=== PATIENT | female | born 1970 | race American Indian/Alaskan Native ===

== ENCOUNTER 2016-09-19 06:44 | Day surgery (SDC) | payer OTHER ==
[2016-09-19] MEDS ORDERED: DIPRIVAN 10 MG/ML IV ONE (07:24)
[2016-09-19] MEDS ORDERED: XYLOCAINE MPF 2% ONE (07:25)
[2016-09-19] MEDS ORDERED: DILAUDID ONE (07:25)
[2016-09-19] MEDS ORDERED: NACL BACTERIOSTATIC INFILTRATI ONE (08:06)
--- NOTE | 2016-09-19 08:06 | Anesthesia Consultation ---
Anesthesia Consult and Med Hx Date of service: 09/19/16 - Airway Anesthetic Teeth Evaluation: Good ROM Head & Neck: Adequate Mental/Hyoid Distance: Adequate Mallampati Class: Class II Intubation Access Assessment: Probably Good - Pulmonary Exam CTA: Yes - Cardiac Exam Cardiac Exam: RRR - Pre-Operative Health Status ASA Pre-Surgery Classification: ASA2 Proposed Anesthetic Plan: General (no preevious anesthesia problems) - Pulmonary Hx Smoking: No Hx Asthma: No SOB: No COPD: No Hx Pneumonia: No Hx Sleep Apnea: No (MARILEE PRE SCREEN LOW RISK) - Cardiovascular System Hx Hypertension: Yes (X 3 MONTHS) Hx Coronary Artery Disease: No Hx Heart Attack/AMI: No Hx Angina: No Hx Cardia Arrhythmia: No Hx Heart Murmur: No - Central Nervous System Hx Seizures: No CVA: No Hx Psychiatric Problems: No - Gastrointestinal Hx Gastroesophageal Reflux Disease: No - Endocrine Hx Renal Disease: No Hx End Stage Renal Disease: No Hx Liver Disease: No Hx Non-Insulin Dependent Diabetes: No Hx Thyroid Disease: No - Other Systems Hx Alcohol Use: Yes (OCCASIONAL) Hx Substance Use: No Hx Cancer: No
--- NOTE | 2016-09-19 08:15 | Anesthesia Day of Surgery ---
Anesthesia Day of Surgery - Day of Surgery Patient Examined: Yes Patient H&P Reviewed: Yes Patient is NPO: Yes
[2016-09-19] MEDS ORDERED: ANCEF/STERILE WATER 2 GM/20 ML IV NR (08:30)
[2016-09-19] MEDS ORDERED: PEPCID IV NR (08:30)
[2016-09-19] MEDS ORDERED: NACL 0.9% 1000 ML 1,000 ML IV SCH (08:30)
[2016-09-19] MEDS ORDERED: VERSED IV NR (08:30)
[2016-09-19] MEDS ORDERED: ANCEF/STERILE WATER 2 GM/20 ML 2 GM/20 ML SYRINGE IV ONE (08:32)
[2016-09-19] MEDS ORDERED: ZOFRAN ONE (09:08)
--- NOTE | 2016-09-19 09:28 | XRay Report ---
KUB: Renal calculi. A KUB is compared to a comparable exam in October 2015. There is a 6.3 mm calculus overlying the right kidney which appears relatively unchanged from prior study. There is a 9.5 mm calculus overlying the left kidney which was not previously present. No other suggestion of renal calculus identified. There has been interval placement of an abdominal mesh. Impressions: Bilateral renal calculi.
--- NOTE | 2016-09-19 11:58 | Short Stay Summary ---
Short Stay Documentation Date of service: 09/19/16 - History H&P: obtained from office - Allergies and Medications Current Medications: Allergies apple Allergy (Verified 05/17/15 12:44) Hives peanut Allergy (Verified 05/17/15 12:44) Hives Sulfa (Sulfonamide Antibiotics) Allergy (Verified 05/22/15 06:51) Itching PT STATES SHE STARTED RUNNING LOW GRADE FEVER, HAD ABD. PAIN AND ITCHING Home Medications Medication Instructions Recorded Confirmed Last Taken Type amLODIPine [Norvasc] 5 mg PO DAILY 09/13/16 09/19/16 09/19/16 05:30 History Active Medications Cefazolin Sodium (Ancef/Sterile Water 2 Gm/20 Ml) 2 gm IV PREOP NR Stop: 09/19/16 12:00 Famotidine (Pepcid) 20 mg IV PREOP NR Stop: 09/19/16 21:00 Last Admin: 09/19/16 08:34 Dose: 20 mg Sodium Chloride (Nacl 0.9% 1000 Ml) 1,000 mls @ 125 mls/hr IV DIRECT SWATHI Stop: 09/19/16 21:00 Last Admin: 09/19/16 08:33 Dose: 125 mls/hr Midazolam HCl (Versed) 2 mg IV PREOP NR Stop: 09/19/16 21:00 Last Admin: 09/19/16 08:37 Dose: 2 mg - Brief post op/procedure progress note Date of procedure: 09/19/16 Pre-op diagnosis: kel rensl stones Post-op diagnosis: same Procedure: right eswl Anesthesia: GETA Findings: good vis Surgeon: ERWIN SARAVIA Estimated blood loss: minimal Pathology: none Specimen disposition: to lab Condition: stable - Hospital course Hospital course: orpac[facility]ome - Disposition Condition at discharge: Good Disposition: DC-01 TO HOME OR SELFCARE Short Stay Discharge Plan Activity: advance as tolerated Diet: advance as tolerated Follow up with: ERWIN SARAVIA MD [Staff Physician] - 7 Days
[2016-09-19 13:02] VITALS: BP 139/95
--- NOTE | 2016-09-22 17:35 | Operative Report ---
PREOPERATIVE DIAGNOSES: 1. Right renal 8 mm stone x 2. 2. Left renal stones. PROCEDURE: Right renal ESWL. SURGEON: Ag Rosenbaum MD ANESTHESIA: General. SPECIMENS: None. ESTIMATED BLOOD LOSS: Minimal. COMPLICATIONS: None. FINDINGS: Good visualization. Mild decrease in density. IMPLANTS: None. CLINICAL INDICATIONS: The patient counseled RCBA, antibiotics, SCDs. The patient has a history of left open ureteral lithotomy, has a likely left upper pole of her kidney not functioning very well with hydronephrosis, even though the nuclear renal scan shows no ____ but some hydronephrosis with past nuclear renal scan showing no obstruction, but due to the previous surgeries, the left kidney may be the one that is at risk for having multiple procedures. She wanted to discuss, she wanted to get the right side cleared to have the smaller stones with two stones in that kidney. Had antibiotics, SCDs. DESCRIPTION OF PROCEDURE: The patient transferred to OR suite in supine position, anesthesia, prepped and draped in standard fashion. Biplanar fluoroscopy was used to target the right stone within the F2. Stone was visualized. A total of 2700 shocks were delivered. Intermittent repositioning was done as necessary. At the end of the procedure, there was decreased density of the stone. The patient was awakened and transferred to PACU in good and stable condition. JOB# [id number] ATS/NTS BREEZY
== END 2016-09-19 12:34 | disposition home or self-care (01) ==
LOC: OR 06:44
PROVIDERS: ATTEND Urology
DX: N13.2 Hydronephrosis with renal and ureteral calculous obstruction (principal); I10 Essential (primary) hypertension; Z72.89 Other problems related to lifestyle; Z91.010 Allergy to peanuts; Z88.2 Allergy status to sulfonamides; Z91.018 Allergy to other foods; Z98.51 Tubal ligation status; Z98.890 Other specified postprocedural states; Z79.899 Other long term (current) drug therapy; Z82.49 Family history of ischemic heart disease and other diseases of the circulatory system; Z83.3 Family history of diabetes mellitus
CPT/HCPCS: 50590; 74000; J0690; J1170; J2250; J2405; J2704; J7030

== ENCOUNTER 2019-03-03 07:13 | Day surgery (SDC) | payer OTHER ==
[~2019-03-03 07:13] MED LIST: IOHEXOL 300 MG/ML 50ML IV ONE; WATER FOR IRRIG STERILE 2000 ML IR ONE
--- NOTE | 2019-03-03 08:47 | Anesthesia Consultation ---
Anesthesia Consult and Med Hx Date of service: 03/03/19 - Airway Anesthetic Teeth Evaluation: Partials ROM Head & Neck: Adequate Mental/Hyoid Distance: Adequate Mallampati Class: Class III Intubation Access Assessment: Possibly Difficult - Pulmonary Exam CTA: Yes (good air movement, no wheezing ) - Cardiac Exam Cardiac Exam: RRR - Pre-Operative Health Status ASA Pre-Surgery Classification: ASA3 Proposed Anesthetic Plan: General - Pulmonary Hx Smoking: No Hx Respiratory Symptoms: Yes (recent flu; completed course of Tamiflu. no residual respiratory symptoms) SOB: No Hx Sleep Apnea: No (MARILEE PRE SCREEN LOW RISK) - Cardiovascular System Hx Hypertension: Yes (taken of meds per PCP several months ago) Hx Heart Attack/AMI: No Hx Percutaneous Transluminal Coronary Angioplasty (PTCA): No - Central Nervous System CVA: No Hx Psychiatric Problems: No - Gastrointestinal Hx Gastroesophageal Reflux Disease: No - Endocrine Hx Renal Disease: No (hydronephrosis; denies hx renal dysfunction) Hx Liver Disease: No Hx Insulin Dependent Diabetes: No Hx Non-Insulin Dependent Diabetes: No Hx Thyroid Disease: No - Other Systems Hx Alcohol Use: Yes (OCCASIONAL) Hx Obesity: No - Additional Comments Anesthesia Medical History Comments: No hx anesthetic complications.
[2019-03-03] MEDS ORDERED: fentaNYL 100 MCG/2 ML INJ IV PRN (08:48)
--- NOTE | 2019-03-03 08:48 | Anesthesia Day of Surgery ---
Anesthesia Day of Surgery - Day of Surgery Patient Examined: Yes Patient H&P Reviewed: Yes Patient is NPO: Yes
[2019-03-03] MEDS ORDERED: MIDAZOLAM 2 MG/2 ML INJ ONE (08:53)
[2019-03-03] MEDS ORDERED: LACTATED RINGERS 1,000 ML IV SCH (09:00)
[2019-03-03] MEDS ORDERED: MIDAZOLAM 2 MG/2 ML INJ IV NR (09:00)
[2019-03-03] MEDS ORDERED: ceFAZolin/Water 2 GM/20 ML 2 GM/20 ML SYRINGE IV ONE (10:06)
[2019-03-03] MEDS ORDERED: SUCCINYLCHOLINE CHLORIDE 200 MG/10 ML INJ MDV ONE (10:22)
[2019-03-03] MEDS ORDERED: dexAMETHasone 20 MG/5 ML VIAL ONE (10:22)
[2019-03-03] MEDS ORDERED: LIDOCAINE MPF (2%) 20 MG/1 ML VIAL 5 ML ONE (10:22)
[2019-03-03] MEDS ORDERED: ONDANSETRON 4 MG/2 ML INJ ONE (10:22)
[2019-03-03] MEDS ORDERED: PHENYLEPHRINE/NS 1,000 MCG/10 ML SYRINGE (OR USE) IV ONE (10:22)
[2019-03-03] MEDS ORDERED: propofoL 200 MG/20 ML VIAL IV ONE (10:23)
[2019-03-03] MEDS ORDERED: fentaNYL 100 MCG/2 ML INJ ONE (10:23)
[2019-03-03] MEDS ORDERED: WATER FOR IRRIG STERILE 2000 ML IR ONE (10:41)
[2019-03-03] MEDS ORDERED: ceFAZolin/STERILE WATER 2 GM/20 ML SYRINGE IV NR (11:00)
--- NOTE | 2019-03-03 11:45 | Short Stay Summary ---
Short Stay Documentation Date of service: 03/03/19 - History H&P: obtained from office - Allergies and Medications Current Medications: Allergies apple Allergy (Verified 05/17/15 12:44) Hives peanut Allergy (Verified 05/17/15 12:44) Hives Sulfa (Sulfonamide Antibiotics) Allergy (Verified 05/22/15 06:51) Itching PT STATES SHE STARTED RUNNING LOW GRADE FEVER, HAD ABD. PAIN AND ITCHING Home Medications Medication Instructions Recorded Confirmed Last Taken Type Ascorbic Acid [Vitamin C] 500 mg PO QDAY 02/25/19 03/03/19 02/28/19 History AtorvaSTATin [Lipitor] 20 mg PO QHS 02/25/19 03/03/19 03/02/19 History HYDROcodone/APAP 10-325 [[place] 1 each PO Q6HR PRN 02/25/19 03/03/19 03/02/19 23:00 History 10/325] Active Medications Cefazolin Sodium (Ancef/Sterile Water 2 Gm/20 Ml) 2 gm IV PREOP NR Stop: 03/03/19 12:00 Fentanyl (Sublimaze) 50 mcg IV Q5MIN PRN PRN Reason: Pain , Severe (7-10) Stop: 03/03/19 23:00 Lactated Ringer's (Lactated Ringers) 1,000 mls @ 100 mls/hr IV DIRECT SWATHI Last Admin: 03/03/19 08:45 Dose: 100 mls/hr Documented by: Midazolam HCl (Versed) 2 mg IV PREOP NR Stop: 03/03/19 23:59 Last Admin: 03/03/19 08:53 Dose: 2 mg Documented by: - Brief post op/procedure progress note Date of procedure: 03/03/19 Pre-op diagnosis: L Renal stone 16mm, Lt uret stone; Rt renal stone Post-op diagnosis: same Procedure: cysto rpg left 7x26 stent, left urs Anesthesia: GETA Findings: no uret stone, good caliber ureter Surgeon: ERWIN SARAVIA Estimated blood loss: minimal Pathology: none Condition: stable - Hospital course Hospital course: [facility]pac[facility]ome - Disposition Condition at discharge: Good Disposition: DC-01 TO HOME OR SELFCARE Short Stay Discharge Plan Activity: advance as tolerated Diet: advance as tolerated Follow up with: ERWIN SARAVIA MD [Staff Physician] - 7 Days
[2019-03-03 12:31] VITALS: BP 127/74
--- NOTE | 2019-03-03 12:59 | Fluoroscopy Report ---
INTRAOPERATIVE FLUOROSCOPY: RETROGRADE UROGRAPHY INDICATION: LT URETERAL STONES. TECHNIQUE: Intraoperative spot images were obtained during the procedure. FINDINGS: A 1.3 cm stone is seen along the left lower renal pole. Bilateral ureteral stents appear unremarkable . No additional significant abnormality of the opacified left renal collecting system is seen. Please see the procedure report for further details. Fluoroscopy Time: 3.5 minutes. Fluoroscopy Images: 6. Signer Name: Allan Mcintosh MD Signed: 03/03/2019 12:54 PM Workstation Name: [id number]
--- NOTE | 2019-03-22 08:09 | Operative Report ---
UROLOGY OPERATIVE NOTE PREOPERATIVE DIAGNOSES: Left ureteral stone, right ureteropelvic junction stone, left renal stone 16 mm. POSTOPERATIVE DIAGNOSES: Left ureteral stone, right ureteropelvic junction stone, left renal stone 16 mm. PROCEDURE: Cystoscopy, RPG, left 7 x 26 stent, left ureteroscopy staged for stent removal, future renal stone treatment and future right stone treatment. ANESTHESIA: General. FINDINGS: No ureteral stone. Good caliber ureter; however, see op note for details of complex anatomy with insight into future treatment. SURGEON: Dr. Ag Rosenbaum. ESTIMATED BLOOD LOSS: Minimal. PATHOLOGY: None. CONDITION: Stable. CLINICAL INDICATIONS: Counseled RCBA, antibiotics, SCDs. The patient has a history of sepsis ____, and stents placed emergently there bilaterally. At that time, it seemed like she had a ureteral stone on the left with obstruction, was septic; no hydro on the right, but a possible UPJ or renal pelvis stone, and stents were placed by another urologist on both sides. She was counseled on options and initially staging, treating and evaluating the left side, then possibly ____, possible simultaneously. Antibiotics, SCDs. DESCRIPTION OF PROCEDURE: The patient was transferred to the OR suite in supine position, anesthesia, dorsal lithotomy, prepped and draped in standard fashion. A 22-[place]ai scope was passed. Pancystoscopy with 30 and 70-degree lens demonstrated no tumors, lesions or other abnormality. At this point, the distal J on the left was visualized. Glidewire 0.35 was passed adjacent to the left renal pelvis. All procedures were done under intermittent fluoroscopy. Stent grasped, pulled out intact. Rigid ureteroscope was passed up the ureter. There was a good caliber ureter, which seemed of adequate caliber to pass stones. Previous imaging had shown a 4 mm stone. No stone identified up to the renal pelvis. At this point, a second wire was passed, flexible scope passed. Ureteroscope passed. At this point, we noted she has some unusual anatomy in that she has the lower pole, which seems to separate with a very, very dependent location. On imaging, almost looks ____. Inspected the lower pole calyces, no stones identified. That is where we would suspect that large 16 mm stone that she had on her CT would have been. Inspected the upper pole and the more mid portion calices, with no stones. Upper pole does have a narrowing into the dilated upper pole; this has been a known dilation which she has had chronically; has been offered treatment in the past and wanted to leave it of course. There was noted to be some debris coming down and some dilation. Inspection of this upper pole dilated system demonstrated no tumors, lesions or no stones; did drain some debris of the bladder. The renal pelvis was inspected. The only other opening we could see was in the posterior pelvis. There was an angled opening; this was very, very minimal, not a typical infundibulum appearance, and did not look like we could easily pass the scope. It was elected at this point, since our goal was to clear the system and given the appearance on the CT if this is a caliceal diverticulum with a small opening, any manipulation could cause obstruction from that stone. Inspecting this, ____ see additional impression at the end, but our concern would be that she may need more aggressive treatment, the opening of the diverticulum versus evaluating if she did have something done percutaneously with concern that ESWL may just make fragments that would not pass. Other risk would be if you passed a laser, the fragments would have difficulty passing, unless the neck to the stone or the infundibulum to the calyx ____ could be widened. At this point, given some debris noted, we elected to stop the procedure. Scope was withdrawn. Wire was backloaded on the cystoscope. A 7 x 26 Thai stent was passed over the wire under direct and fluoroscopic visualization. When the wire and string was removed, nice proximal J, nice distal J. The patient was awakened and transferred to the PACU. PLAN: Staged for future treatment of the right side and then future treatment of the chronic left renal stone. JOB# [id number] ATS/NTS
== END 2019-03-03 13:30 | disposition home or self-care (01) ==
LOC: OR 07:13
PROVIDERS: ATTEND Urology
DX: N20.2 Calculus of kidney with calculus of ureter (principal); E78.00 Pure hypercholesterolemia, unspecified; I10 Essential (primary) hypertension; Z98.51 Tubal ligation status; Z88.8 Allergy status to other drugs, medicaments and biological substances; Z88.2 Allergy status to sulfonamides; Z91.010 Allergy to peanuts; Z87.440 Personal history of urinary (tract) infections; Z72.89 Other problems related to lifestyle; Z98.890 Other specified postprocedural states; Z79.899 Other long term (current) drug therapy
CPT/HCPCS: 52332; 74420; A4217; C1726; C1758; C1769; C2617; J0330; J0690; J1100; J2250; J2370; J2405; J2704; J3010; J7120; Q9967

== ENCOUNTER 2019-04-06 11:01 | Day surgery (SDC) | payer OTHER ==
[2019-04-06] MEDS ORDERED: ONDANSETRON 4 MG/2 ML INJ IV PRN (12:16)
[2019-04-06] MEDS ORDERED: fentaNYL 100 MCG/2 ML INJ IV PRN (12:16)
--- NOTE | 2019-04-06 12:17 | Anesthesia Day of Surgery ---
Anesthesia Day of Surgery - Day of Surgery Patient Examined: Yes Patient H&P Reviewed: Yes Patient is NPO: Yes
--- NOTE | 2019-04-06 12:21 | Anesthesia Consultation ---
Anesthesia Consult and Med Hx Date of service: 04/06/19 - Airway Anesthetic Teeth Evaluation: Good, Partials ROM Head & Neck: Adequate Mental/Hyoid Distance: Adequate Mallampati Class: Class III Intubation Access Assessment: Probably Good - Pre-Operative Health Status ASA Pre-Surgery Classification: ASA1 Proposed Anesthetic Plan: General - Pulmonary Hx Smoking: No Hx Respiratory Symptoms: Yes (recent flu; completed course of Tamiflu. no residual respiratory sxs 03/01) SOB: No Hx Sleep Apnea: No (MARILEE PRE SCREEN LOW RISK) - Cardiovascular System Hx Hypertension: Yes (taken of meds per PCP several months ago-lost weight) Hx Heart Attack/AMI: No Hx Angina: No Hx Percutaneous Transluminal Coronary Angioplasty (PTCA): No Hx Cardia Arrhythmia: No - Central Nervous System Hx Seizures: No CVA: No Hx Back Pain: (NECK PAIN) Hx Psychiatric Problems: No - Gastrointestinal Hx Gastroesophageal Reflux Disease: No - Endocrine Hx Renal Disease: Yes (Stones) Hx End Stage Renal Disease: No Hx Liver Disease: No Hx Insulin Dependent Diabetes: No Hx Non-Insulin Dependent Diabetes: No Hx Thyroid Disease: No - Hematic Hx Sickle Cell Disease: No - Other Systems Hx Alcohol Use: Yes (OCCASIONAL) Hx Substance Use: No Hx Cancer: No Hx Obesity: No
[2019-04-06] MEDS ORDERED: ACETAMINOPHEN 500 MG TAB PO ONE (12:22)
[2019-04-06] MEDS ORDERED: MAGNESIUM OXIDE 400 MG TAB PO ONE (12:22)
[2019-04-06] MEDS ORDERED: PHENYLEPHRINE/NS 1,000 MCG/10 ML SYRINGE (OR USE) IV ONE (12:54)
[2019-04-06] MEDS ORDERED: ONDANSETRON 4 MG/2 ML INJ ONE (12:54)
[2019-04-06] MEDS ORDERED: SUCCINYLCHOLINE CHLORIDE 200 MG/10 ML INJ MDV ONE (12:54)
[2019-04-06] MEDS ORDERED: fentaNYL 100 MCG/2 ML INJ ONE (12:54)
[2019-04-06] MEDS ORDERED: propofoL 200 MG/20 ML VIAL IV ONE (12:54)
[2019-04-06] MEDS ORDERED: LIDOCAINE MPF (2%) 20 MG/1 ML VIAL 5 ML ONE (12:54)
[2019-04-06] MEDS ORDERED: dexAMETHasone 20 MG/5 ML VIAL ONE (12:54)
[2019-04-06] MEDS ORDERED: LACTATED RINGERS 1,000 ML IV SCH (13:00)
[2019-04-06] MEDS ORDERED: MIDAZOLAM 2 MG/2 ML INJ IV NR (13:00)
[2019-04-06] MEDS ORDERED: ceFAZolin/STERILE WATER 2 GM/20 ML SYRINGE IV NR (13:00)
[2019-04-06] MEDS ORDERED: LACTATED RINGERS 1,000 ML ONE (15:41)
[2019-04-06] MEDS ORDERED: IOHEXOL 300 MG/ML 50ML IV ONE (16:00)
--- NOTE | 2019-04-06 16:23 | Short Stay Summary ---
Short Stay Documentation Date of service: 04/06/19 - History H&P: obtained from office - Allergies and Medications Current Medications: Allergies apple Allergy (Verified 03/24/19 17:00) SWELLING & HIVES HIVES peanut Allergy (Verified 03/24/19 17:01) SWELLING & HIVES Sulfa (Sulfonamide Antibiotics) Allergy (Verified 05/22/15 06:51) Itching PT STATES SHE STARTED RUNNING LOW GRADE FEVER, HAD ABD. PAIN AND ITCHING Home Medications Medication Instructions Recorded Confirmed Last Taken Type AtorvaSTATin [Lipitor] 20 mg PO QHS 02/25/19 03/25/19 03/02/19 History HYDROcodone/APAP 10-325 [[place] 1 each PO Q6HR PRN 02/25/19 03/25/19 03/02/19 23:00 History 10/325] Active Medications Cefazolin Sodium (Ancef/Sterile Water 2 Gm/20 Ml) 2 gm IV PREOP NR Stop: 04/06/19 23:59 Fentanyl (Sublimaze) 50 mcg IV Q5MIN PRN PRN Reason: Pain , Severe (7-10) Lactated Ringer's (Lactated Ringers) 1,000 mls @ 125 mls/hr IV DIRECT SWATHI Last Admin: 04/06/19 12:35 Dose: 125 mls/hr Documented by: Midazolam HCl (Versed) 2 mg IV PREOP NR Stop: 04/06/19 23:59 Last Admin: 04/06/19 12:59 Dose: 2 mg Documented by: Ondansetron HCl (Zofran) 4 mg IV ONCE PRN PRN Reason: Nausea And Vomiting - Brief post op/procedure progress note Date of procedure: 04/06/19 Pre-op diagnosis: ERIN stents, erin renal stones Post-op diagnosis: same Procedure: cysto, right rpg, left stent pull, right stent change; right URS Findings: 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
[2019-04-06] MEDS ORDERED: MEPERIDINE 25 MG/1 ML INJ ONE (16:29)
[2019-04-06] MEDS ORDERED: KETOROLAC 30 MG/1 ML INJ ONE (16:37)
[2019-04-06] MEDS ORDERED: MEPERIDINE 25 MG/1 ML INJ IV PRN (16:40)
--- NOTE | 2019-04-06 17:02 | Fluoroscopy Report ---
CLINICAL INDICATION: RIGHT KIDNEY STONE TECHNICAL DATA: 13 images were submitted for interpretation. Fluoroscopy time was 2.5 minutes FINDINGS: Using C-arm technology, dilated pigtail stent was exchanged without complication. Calculus is present left kidney. The left stent has been removed IMPRESSION: Right stent exchange as noted Signer Name: Rajendra Gray MD Signed: 04/06/2019 4:57 PM Workstation Name: [id number]
[2019-04-06 17:51] VITALS: BP 140/73
--- NOTE | 2019-04-06 20:51 | Post Anesthesia Evaluation ---
- Post Anesthesia Evaluation Patient Participated: Yes Airway Patent: Yes Stable Respiratory Function: Yes Nausea/Vomiting: No Temp > 96.8F: Yes Pain Manageable: Yes Adequeate Hydration: Yes Anesthesia Complications: No Block Receding Appropriately: Not Applicable Patient on Ventilator: No
--- NOTE | 2019-04-28 17:18 | Operative Report ---
PREOPERATIVE DIAGNOSES: Bilateral renal stones, bilateral ureteral stones. POSTOPERATIVE DIAGNOSES: Bilateral renal stones, bilateral ureteral stones. PROCEDURE: Cystoscopy, left stent removal, right stent exchange, stage for future removal, right ureteroscopy, right retrograde pyelogram. SURGEON: Ag Rosenbaum MD ANESTHESIA: General. SPECIMENS: None. ESTIMATED BLOOD LOSS: Minimal. COMPLICATIONS: None. 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 CLINICAL INDICATIONS: The patient counseled RCBA, antibiotics, SCDs. The patient has a history of sepsis with bilateral stents placed, left stent placed through the obstruction on the CT right because the patient had some fullness and was just precautionary due to the patient's severe sepsis. The patient has undergone left ureteroscopy and has passed stones, here for removal of the left stent as well as right ureteroscopy to clear the system. Her original CT had a right renal pelvis, possible stone, but possibly could have passed. DESCRIPTION OF PROCEDURE: The patient was transferred to OR suite in supine position, anesthesia, dorsal lithotomy, prepped and draped in standard fashion, had already received antibiotics, SCDs, prepped and draped in standard fashion. A 22-[place]izen [place] scope passed, left distal J stent visualized, grasped, pulled out intact. At this point, a right distal J visualized. Glidewire passed adjacent to this up to the renal pelvis. Stent grasped, pulled out intact. Rigid ureteroscope was passed up the ureter. Contrast injected, of note and this can be correlated with RPG. There was a proximal funnel shaped from the mid ureter proximally. We suspect this is likely her chronic appearance of her kidney and ureter. There was seen to be a very good caliber ureter to pass large stones even up to what would be her UPJ. A second wire was passed. Flexible ureteroscope was passed and inspected upper and lower pole system, expected the renal pelvis and proximal ureter very very well and no stone was identified. Similar to her left kidney, there was some smaller infundibulum or possibly openings to calyceal diverticulum, but could not see any stones and we thought we got a fairly good visualization. Of note, also would suspect with her large diameter ureter that should easily be able to pass some moderate sized stones. At this point, the scope was withdrawn. Wire backloaded on the cystoscope. A 6-[place]izen [place] double-J stent was passed over the wire under direct and fluoroscopic visualization. When the wire and string removed, nice proximal and distal J on the right bladder drained. The patient awakened and transferred to the PACU in good and stable condition. PLAN: Stage for future removal of the right stone. Of note, there was a plan for staged future treatment of her left renal stone. JOB# [id number] ATS/NTS
== END 2019-04-06 11:02 | disposition home or self-care (01) ==
LOC: OR 11:01
PROVIDERS: ATTEND Urology
DX: N20.2 Calculus of kidney with calculus of ureter (principal); E78.00 Pure hypercholesterolemia, unspecified; I10 Essential (primary) hypertension; Z98.51 Tubal ligation status; Z98.890 Other specified postprocedural states; Z87.440 Personal history of urinary (tract) infections; Z72.89 Other problems related to lifestyle; Z79.899 Other long term (current) drug therapy; Z88.2 Allergy status to sulfonamides; Z91.010 Allergy to peanuts; Z88.8 Allergy status to other drugs, medicaments and biological substances
CPT/HCPCS: 52332; 74420; C1758; C1769; C2617; J0330; J0690; J1100; J1885; J2175; J2250; J2370; J2405; J2704; J3010; J7120; Q9967